=== PATIENT | female | born 1965 | race Caucasian/White ===

== ENCOUNTER 2016-07-03 06:18 | Day surgery (SDC) | payer OTHER ==
[~2016-07-03 06:18] MED LIST: Buffered Lidocaine 1% SYR 3ML* 3 ML/SYR SYRINGE INTRADERM ONE
[2016-07-03] MEDS ORDERED: ceFAZolin 2 GM PREMIX (*) 2 GM/50 ML BAG IVPB ONE (06:34)
[2016-07-03] MEDS ORDERED: Bupivacaine 0.5% W/EPI SDV* 30 ML VIAL ONE (07:09)
[2016-07-03] MEDS ORDERED: Lidocaine 1% INJ* 10 MG/ML 30 ML SDV ONE (07:09)
[2016-07-03 07:15] LABS: UR Preg Internal Control QC Line Present
[2016-07-03 07:16] LABS: Manual Entry Verification HAN0055
[2016-07-03] MEDS ORDERED: Midazolam* 1 MG/ML 5 ML VIAL (5 MG) ONE (07:46)
[2016-07-03] MEDS ORDERED: fentaNYL* 50 MCG/ML 2 ML VIAL (100 MCG VIAL) ONE ×2 (07:46→08:22)
[2016-07-03] MEDS ORDERED: Midazolam* 1 MG/ML 2 ML VIAL (2 MG) ONE (08:21)
[2016-07-03] MEDS ORDERED: oxyCODONE/Acetamin 5/325 MG* TAB PO PRN (08:53)
--- NOTE | 2016-07-03 08:53 | SURGPN ---
Brief Operative Note - Surgery Procedures: OPERATIVE REPORT PRE-OP: Left femoral hernia POST-OP: Same PROCEDURE: Open repair with mesh of left femoral hernia SURGEON: MD Tennille ANESTHESIA:Local with MAC Dr. Joseph ASST: VICTOR MANUEL Melton IVF: min EBL: min SPECIMEN: none DRAIN: none WOUND CLASS: One COMPLICATIONS: none TO PACU
[2016-07-03] MEDS ORDERED: Ketorolac INJ* 30 MG/ML 1 ML VIAL ONE (09:04)
[2016-07-03] MEDS ORDERED: Ketorolac INJ* 30 MG/ML 1 ML VIAL IV PUSH ONE (09:05)
[2016-07-03 09:53] VITALS: BP 125/88
--- NOTE | 2016-07-04 05:55 | OP ---
DATE OF OPERATION: 07/03/16 - [facility] DATE OF : 67 SURGEON: David Null MD ASSISTANT HEALTH EDUCATOR: VICTOR MANUEL Delatorre ANESTHESIOLOGIST: Dr. Ke Joseph. ANESTHESIA: Local with monitored anesthesia care. PRE-OP DIAGNOSIS: Left femoral hernia. POST-OP DIAGNOSIS: Left femoral hernia. OPERATIVE PROCEDURE: Open repair of a left femoral hernia with polypropylene mesh. ESTIMATED BLOOD LOSS: Minimal. SPECIMEN: None. WOUND CLASSIFICATION: I. COMPLICATIONS: None. DRAINS: None. DESCRIPTION OF PROCEDURE: Written informed consent was obtained. The left groin was marked with indelible ink and preoperative antibiotics were administered. The patient was taken to the operating room and placed in the supine position. Sequential compression devices and a warming blanket were applied. The left groin and lower abdomen were prepped and draped in the usual sterile fashion. Time-out verification was completed. Next, 0.25% Marcaine mixed with 1% lidocaine with epinephrine was infiltrated in the left groin, just above the inguinal crease, medial to the palpable femoral pulse. An oblique incision was made about a fingerbreadth above the inguinal crease, carried down through the subcutaneous tissue and the inferior portion and external oblique aponeurosis was identified. Here there was also noted to be a femoral hernia sac which was rather large and this was with sharp dissection from the surrounding tissue up into the neck of what appeared to be the femoral canal. With some gentle pressure, the hernia sac was completely reduced. The femoral canal and hernia defect appeared to be about 4 to 5 mm in size and this was reduced easily up into the abdominal cavity. Next, a cylindrical piece of polypropylene was fashioned with a diameter of about 5 to 6 mm in length of almost 4 cm, where this was placed in to the femoral canal until it was flush with the level of the reflection of the external oblique aponeurosis, just below the inguinal ligament. This plugged the defect nicely and it was sutured with two separate 0 Polysorb sutures to the musculature medially and the inguinal ligament inferiorly. Hemostasis was assured. The wound was then closed in layers with 3-0 and 4-0 Polysorb suture. Steri-Strips and sterile dressings were applied. The patient tolerated the procedure well, was taken to the recovery room in stable condition. [id number]/[facility] #: [id number] [facility] MED[facility] CENTERKaren
== END 2016-07-03 09:51 | disposition home or self-care (01) ==
LOC: OR 06:18
PROVIDERS: ATTEND Surgery
DX: K41.90 Unilateral femoral hernia, without obstruction or gangrene, not specified as recurrent (principal); I10 Essential (primary) hypertension
CPT/HCPCS: 81025; C1781; J0690; J1885; J2250; J3010